=== PATIENT | female | born 1945 | race Asian ===

== ENCOUNTER 2017-05-18 14:16 | Outpatient (CLI) | payer MEDICARE ==
[2017-05-18 19:23] LABS: ALBUMIN/GLOBULIN RATIO 1.4 (1.0-2.2); BILIRUBIN,TOTAL 0.5 mg/dL (0.2-1.0); BUN - BLOOD UREA NITROGEN 22 mg/dL (6-20); CARBON DIOXIDE - CO2 28 mmol/L (21-32); CHLORIDE 106 mmol/L (101-111); CHOL/HDL RATIO 3.4 (<4.4); CHOLESTEROL 203 mg/dL; CREATININE 0.8 mg/dL (0.4-1.0); GFR - MDRD 71 (>89); GLUCOSE 82 mg/dL (70-100); HDL CHOLESTEROL 60 mg/dL; SODIUM 142 mmol/L (135-145); TOTAL PROTEIN 7.8 g/dL (6.7-8.2); TRIGLYCERIDES 111 mg/dL; VLDL CHOLESTEROL 22 mg/dL
[2017-05-18 19:24] LABS: BASOPHILS % (AUTO) 0.9 %; EOSINOPHILS # (AUTO) 0.3 10^3/uL (0.0-0.7); EOSINOPHILS % (AUTO) 4.9 %; HCT - HEMATOCRIT 39.8 % (37.0-47.0); HGB - HEMOGLOBIN 13.2 g/dL (12.0-16.0); LYMPHOCYTES # (AUTO) 2.2 10^3/uL (1.5-3.5); LYMPHOCYTES % (AUTO) 38.1 %; MEAN CORPUSCULAR HEMOGLOBIN 30.7 pg (27.0-31.0); MEAN CORPUSCULAR HGB CONC 33.2 g/dL (32.0-36.0); MEAN CORPUSCULAR VOLUME 92.5 fL (81.0-99.0); MEAN PLATELET VOLUME 8.6 fL (7.9-10.8); MONOCYTES # (AUTO) 0.5 10^3/uL (0.0-1.0); MONOCYTES % (AUTO) 8.2 %; NEUTROPHILS # (AUTO) 2.7 10^3/uL (1.5-6.6); NEUTROPHILS % (AUTO) 47.9 %; NUCLEATED RED BLOOD CELLS AUTO 0.1 /100WBC; RED CELL DISTRIBUTION WIDTH 14.5 % (12.0-15.0); UNCORRECTED WHITE BLOOD COUNT 5.7 x10^3/uL; WHITE BLOOD COUNT 5.7 x10^3/uL (4.8-10.8)
[2017-05-19 14:22] LABS: TEST RESULT REPORT (())
== END 2017-05-18 14:17 | disposition home or self-care (01) ==
LOC: LAB.WCP 14:16
PROVIDERS: ATTEND Physician Assistant Medical
DX: R94.5 Abnormal results of liver function studies (principal); K76.0 Fatty (change of) liver, not elsewhere classified; E04.9 Nontoxic goiter, unspecified; E78.00 Pure hypercholesterolemia, unspecified; Z79.899 Other long term (current) drug therapy
CPT/HCPCS: 36415; 80053; 80061; 81599; 84443; 85025; 86317; 86704; 86708; 86709; 86803; 87340

== ENCOUNTER 2017-06-03 14:03 | Outpatient (CLI) | payer MEDICARE ==
--- NOTE | 2017-06-04 09:14 | DEXA Report ---
DEXA SCAN: 06/03/2017 CLINICAL INDICATION: Postmenopausal. TECHNIQUE: Dual energy x-ray absorptiometry (DXA) was performed on a [employer] system. Regions measured are the AP spine, femoral neck, and, if needed, forearm. COMPARISON: None. In accordance with the International Society for Clinical Densitometry (ISCD) guidelines, data from previous exams may be reanalyzed using current recommendations and techniques. This is done to allow a more accurate basis for comparison with the current study. FINDINGS: The data for the lumbar spine is as follows: REGION BMD (g/cm/cm) T-SCORE Z-SCORE L1 0.935 -1.6 -0.3 L2 1.066 -1.1 0.2 L3 0.878 -2.7 -1.3 L4 1.091 -0.9 0.4 TOTAL 0.995 -1.5 -0.2 NOTE: All evaluable vertebrae are used for classification. The data for the hip is as follows: REGION BMD (g/cm/cm) T-SCORE Z-SCORE Neck 0.754 -2.0 -0.5 TOTAL 0.782 -1.8 -0.4 NOTE: The femoral neck or total proximal femur, whichever is lowest, is used for classification. IMPRESSION: THE WHO CLASSIFICATION BASED ON THE INTERNATIONAL REFERENCE STANDARD IS OSTEOPENIA. THE FRACTURE RISK IS INCREASED. RECOMMENDATION: Patients with diagnosis of osteoporosis or osteopenia should have regular bone mineral density assessment. For those eligible for Medicare, routine testing is allowed once every 2 years. Testing frequency can be increased for patients who have rapidly progressing disease or for those who are receiving medical therapy to restore bone mass. COMMENT: World Health Organization (WHO) definitions for osteoporosis and osteopenia: NORMAL BMD: T-score at -1.0 or higher, fracture risk is low. OSTEOPENIA BMD: T-score between -1.0 and -2.5, fracture risk is increased. OSTEOPOROSIS BMD: T-score at -2.5 or lower, fracture risk high. National Osteoporosis Foundation recommends: 1. Obtain adequate dietary calcium (at least 1200 mg per day) and vitamin D (400 -800 international units per day). 2. Participate, as appropriate, in regular weightbearing and muscle- strengthening exercise. 3. Avoid tobacco use and reduce alcohol and caffeine intake. 4. For more detailed information see the website at www.NOF.org. MTDD
== END 2017-06-03 14:04 | disposition home or self-care (01) ==
LOC: DI 14:03
PROVIDERS: ATTEND Physician Assistant Medical
DX: M85.89 Other specified disorders of bone density and structure, multiple sites (principal)
CPT/HCPCS: 77080

== ENCOUNTER 2018-06-08 08:00 | Outpatient (CLI) | payer MEDICARE ==
[2018-06-08 19:03] LABS: BASOPHILS # (AUTO) 0.1 10^3/uL (0.0-0.1); EOSINOPHILS # (AUTO) 0.3 10^3/uL (0.0-0.7); HGB - HEMOGLOBIN 13.4 g/dL (12.0-16.0); LYMPHOCYTES # (AUTO) 1.9 10^3/uL (1.5-3.5); LYMPHOCYTES % (AUTO) 29.2 %; MEAN CORPUSCULAR HEMOGLOBIN 31.7 pg (27.0-31.0); MEAN CORPUSCULAR HGB CONC 33.3 g/dL (32.0-36.0); MEAN CORPUSCULAR VOLUME 95.1 fL (81.0-99.0); MEAN PLATELET VOLUME 8.2 fL (7.9-10.8); MONOCYTES # (AUTO) 0.5 10^3/uL (0.0-1.0); MONOCYTES % (AUTO) 7.6 %; NEUTROPHILS # (AUTO) 3.7 10^3/uL (1.5-6.6); NEUTROPHILS % (AUTO) 58.2 %; PLT - PLATELET COUNT 167 10^3/uL (130-450); RED BLOOD COUNT 4.24 10^6/uL (4.20-5.40); RED CELL DISTRIBUTION WIDTH 14.7 % (12.0-15.0); WHITE BLOOD COUNT 6.4 x10^3/uL (4.8-10.8)
[2018-06-08 19:31] LABS: ALBUMIN 4.2 g/dL (3.2-5.5); ALBUMIN/GLOBULIN RATIO 1.2 (1.0-2.2); ALKALINE PHOSPHATASE 82 IU/L (42-121); ALT ALANINE AMINOTRANSFERASE 42 IU/L (10-60); AST ASPARTATE AMINOTRANSFERASE 31 IU/L (10-42); BILIRUBIN,TOTAL 0.7 mg/dL (0.2-1.0); BUN - BLOOD UREA NITROGEN 24 mg/dL (6-20); CALCIUM 9.9 mg/dL (8.5-10.3); CARBON DIOXIDE - CO2 28 mmol/L (21-32); CHLORIDE 102 mmol/L (101-111); CHOL/HDL RATIO 2.7 (<4.4); CHOLESTEROL 175 mg/dL; CREATININE 0.8 mg/dL (0.4-1.0); GFR - MDRD 70 (>89); GLUCOSE 91 mg/dL (70-100); HDL CHOLESTEROL 65 mg/dL; LDL CHOLESTEROL,CALCULATED 89 mg/dL; LDL/HDL RATIO 1.4 (<4.4); SODIUM 138 mmol/L (135-145); TOTAL PROTEIN 7.8 g/dL (6.7-8.2); URIC ACID 3.7 mg/dL (2.6-7.2); VLDL CHOLESTEROL 21 mg/dL
[2018-06-08 19:36] LABS: THYROID STIMULATING HORMONE 2.16 uIU/mL (0.34-5.60)
[2018-06-08 19:38] LABS: FREE T4 (FREE THYROXINE) 0.87 ng/dL (0.58-1.64)
== END 2018-06-08 08:01 | disposition home or self-care (01) ==
LOC: LAB.WCP 08:00
PROVIDERS: ATTEND Physician Assistant
DX: I10 Essential (primary) hypertension (principal); Z79.899 Other long term (current) drug therapy; E04.9 Nontoxic goiter, unspecified; N20.0 Calculus of kidney
CPT/HCPCS: 36415; 80053; 80061; 83721; 84439; 84443; 84550; 85025; 85651

== ENCOUNTER 2019-10-25 10:10 | Outpatient (CLI) | payer MEDICARE | END 2019-10-25 10:11 | disposition home or self-care (01) | LOC: DI 10:10 | PROVIDERS: ATTEND Physician Assistant | DX: I27.20 Pulmonary hypertension, unspecified (principal); I51.7 Cardiomegaly | CPT/HCPCS: 93306 ==

== ENCOUNTER 2019-12-20 08:00 | Outpatient (CLI) | payer MEDICARE ==
[2019-12-20 18:52] LABS: BASOPHILS # (AUTO) 0.1 10^3/uL (0.0-0.1); BASOPHILS % (AUTO) 1.2 %; EOSINOPHILS # (AUTO) 0.2 10^3/uL (0.0-0.7); EOSINOPHILS % (AUTO) 4.1 %; HGB - HEMOGLOBIN 13.1 g/dL (12.0-16.0); LYMPHOCYTES # (AUTO) 1.5 10^3/uL (1.5-3.5); LYMPHOCYTES % (AUTO) 30.8 %; MEAN CORPUSCULAR HEMOGLOBIN 29.6 pg (27.0-31.0); MEAN CORPUSCULAR HGB CONC 31.6 g/dL (32.0-36.0); MEAN CORPUSCULAR VOLUME 93.9 fL (81.0-99.0); MEAN PLATELET VOLUME 10.5 fL (7.9-10.8); MONOCYTES # (AUTO) 0.4 10^3/uL (0.0-1.0); MONOCYTES % (AUTO) 8.6 %; NEUTROPHILS # (AUTO) 2.7 10^3/uL (1.5-6.6); NEUTROPHILS % (AUTO) 54.9 %; PLT - PLATELET COUNT 148 10^3/uL (130-450); RED BLOOD COUNT 4.42 10^6/uL (4.20-5.40); RED CELL DISTRIBUTION WIDTH 14.1 % (12.0-15.0); WHITE BLOOD COUNT 4.9 x10^3/uL (4.8-10.8)
[2019-12-20 19:30] LABS: ALBUMIN 4.2 g/dL (3.2-5.5); ALBUMIN/GLOBULIN RATIO 1.3 (1.0-2.2); ALKALINE PHOSPHATASE 103 IU/L (42-121); ALT ALANINE AMINOTRANSFERASE 59 IU/L (10-60); AST ASPARTATE AMINOTRANSFERASE 45 IU/L (10-42); BILIRUBIN,TOTAL 0.7 mg/dL (0.2-1.0); BUN - BLOOD UREA NITROGEN 19 mg/dL (6-20); CALCIUM 10.1 mg/dL (8.5-10.3); CARBON DIOXIDE - CO2 27 mmol/L (21-32); CHLORIDE 104 mmol/L (101-111); CHOLESTEROL 215 mg/dL; CREATININE 0.9 mg/dL (0.4-1.0); GFR - MDRD 61 (>89); GLUCOSE 102 mg/dL (70-100); HDL CHOLESTEROL 71 mg/dL; LDL CHOLESTEROL,CALCULATED 129 mg/dL; LDL/HDL RATIO 1.8 (<4.4); SODIUM 140 mmol/L (135-145); TOTAL PROTEIN 7.4 g/dL (6.7-8.2); URIC ACID 3.5 mg/dL (2.6-7.2); VLDL CHOLESTEROL 15 mg/dL
== END 2019-12-20 23:59 | disposition home or self-care (01) ==
LOC: LAB.WCP 08:00
PROVIDERS: ATTEND Physician Assistant
DX: I10 Essential (primary) hypertension (principal); Z79.899 Other long term (current) drug therapy; N20.0 Calculus of kidney
CPT/HCPCS: 36415; 80053; 80061; 83721; 84550; 85025

== ENCOUNTER 2020-01-09 11:15 | Outpatient (CLI) | payer MEDICARE ==
--- NOTE | 2020-01-10 20:21 | SLEEP CARE CONSULTATION ---
Information from patient questionnaire entered by Leonor Prasad. I have reviewed and concur with the information entered by Leonor Prasad. This document represents the service I personally performed and the decisions made by me, Karley Villanueva MD, [facility]. History of Present Illness Reason for Visit: New patient Chief Complaint: reports: Unrefreshed sleep, Snoring, Fatigue, Frequent awakenings at night Duration of Symptoms: 5 years Usual bedtime: 2300 Time it takes to fall asleep: 30-60 minutes Snores at night: Yes Observed to quit breathing while asleep: No Reasons for waking at night: reports: Snoring, Bathroom Toss, Turn, or Twitch while sleeping: Yes Recalls having dreams: Yes (not all the time) Usually gets out of bed at: [id number] Feels refreshed in the morning: Yes Morning headache: No Sleepy or fatigued during the day: No Takes day naps: Yes Dreams during day naps: Yes Prior sleep studies: No Additional HPI information: I had the pleasure of seeing Mrs. Colin along with her daughter today regarding the possibility of her having a sleep disorder. As you know, she is a 74 year old lady who complains of frequent awakenings, unrefreshed sleep, and persistent fatigue for the past 5 years. She recently was diagnosed with pulmonary hypertension. The patient tells me that she normally goes to bed around 11 pm, and it takes her approximately 30 - 60 minutes to fall asleep. She has been told that she snores loudly and irregularly at night. She has never been observ ed to stop breathing in her sleep. However, she sleeps alone. She can recall waking up on the average of 2 - 3 times during the night. Most of the time she wakes up because of having to use the bathroom. She has awakened occasionally because of her own snoring, choking, and having to gasp for air. There is a lot of tossing and turning in her sleep. 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 Generally she can recall having dreams. In the morning she usually gets up out of the bed around 11 a.m. noon, feeling refreshed and rested. She usually does not have a morning headache. During the day she does not feel sleepy. Her score on [place] Sleepiness Scale is 11 out of 24. She does not drive. She usually takes naps during the day. Upon falling asleep during the day she reports having dreams. She has symptoms of restless leg syndrome. She reports having impaired concentration during the day. Subjective Initial [place] Sleepiness Scale score: 11 Past Medical History Past Medical History: reports: Hypertension, Gout, Other (Pulmonary hypertension, fatty liver, nephrolithiasis) Social History The patient's occupation is retired. Patient is and lives in [place]. Have you smoked in the past 12 months: No Alcohol use: No Caffeine use: Yes Allergies and Home Medications Drug allergies reviewed: Yes (NKDA) Home medication list reviewed: Yes (allopurinol. lisinopril, amlodipine) Review of Systems Cardiovascular: reports: high blood pressure Respiratory: denies: shortness of breath, wheeze, sputum production, chronic cough, other Gastrointestinal: denies: heartburn, difficulty swallowing, nausea, vomitting, diarrhea, abdominal pain, other Urinary: denies: incontinence, frequency, urgency, impotence, other Neurological: reports: headaches Psychiatric: denies: Attention Deficit Hyperactivity, anxiety, depression, mood disorder, claustrophobia, other Ear/Nose/Throat: denies: nasal congestion, sinus problems, nose bleeds, dry mouth/throat, hoarseness, injury to nose, tonsillectomy, wisdom teeth removed, other Endocrine: denies: thyroid disease, history of goiter, sluggishness, too hot or cold, excessive thirst, increased appetite, increased urination, unexplained weakness, other Musculoskeletal: denies: joint pain, neck pain, back pain, joint swelling, muscle pain or cramping, mobility problems, other Immunologic: denies: sneezing, rash, itching, allergies to food or environment, other Physical Exam Vital signs obtained and entered by: Dr. Villanueva Blood Pressure: 145/85 Cuff size: regular Heart Rate: 71 O2 Saturation: 98 Height: 5 ft Weight: 165 lb Body Mass Index: 32.2 BMI Classification: Obesity Class 1 Neck circumference: 15 Mood/affect: normal HEENT: No craniofacial malformation Nostrils: patent to airflow Turbinates: normal Septum: midline Mouth and throat: narrow oropharynx Soft palate: long Hard palate: normal Uvula: normal Uvula visualization: 25% Mallampati Class III Tongue: enlarged in size with teeth cabrera on lateral edges Tonsils: small Chin and jaw: normal size and position Neck: normal w/o lymphadenopathy or thyromegaly Heart: regular rate and rhythm Lungs: clear bilaterally Abdomen: soft, non-tender Extremities: 1+ edema Neurologic: intact, no focal deficits Impression and Plan IMPRESSION: 1. Obstructive Sleep Apnea-Hypopnea Syndrome, as suggested by history of loud snoring, frequent awakenings during the night, unrefreshed sleep, cognitive impa irment, and daytime hypersomnolence. Narrow oropharynx and obesity are common predisposing factors for obstructive sleep apnea-hypopnea syndrome. Obstructive sleep apnea-hypopnea can also cause pulmonary hypertension. Pathophysiology of sleep-disordered breathing was discussed. I recommend proceeding to polysomnography to confirm the diagnosis and to assess severity. If she has significant sleep disordered breathing, a manual CPAP titration study will also be performed to find the optimal treatment pressure. I informed the patient of what the sleep studies involve and after some discussion, she agreed to proceed. Plan: 1. Schedule an in-laboratory polysomnography. 2. Try to lose weight. 3. Avoid alcohol, sedative and muscle relaxant around bedtime. 4. Return in 1 to 2 weeks after the study to discuss results and initiate therapy I spent 100% of this visit face to face with the patient with greater than 50% of this was spent time counseling the patient and coordination of care.
[2020-01-10 20:22] VITALS: BP 145/85
== END 2020-01-09 11:16 | disposition home or self-care (01) ==
LOC: SC 11:15
PROVIDERS: ATTEND Internal Medicine Pulmonary Disease
DX: G47.10 Hypersomnia, unspecified (principal); G47.8 Other sleep disorders; R41.89 Other symptoms and signs involving cognitive functions and awareness; R06.83 Snoring; E66.9 Obesity, unspecified; Z68.32 Body mass index [BMI] 32.0-32.9, adult
CPT/HCPCS: 99203; G0463; 99212

== ENCOUNTER 2020-01-19 20:37 | Outpatient (CLI) | payer MEDICARE | END 2020-01-19 20:38 | disposition home or self-care (01) | LOC: SC 20:37 | PROVIDERS: ATTEND Internal Medicine Pulmonary Disease | DX: G47.8 Other sleep disorders (principal); R06.83 Snoring; I10 Essential (primary) hypertension; R53.83 Other fatigue; E66.9 Obesity, unspecified; Z68.32 Body mass index [BMI] 32.0-32.9, adult | CPT/HCPCS: 95810 ==

== ENCOUNTER 2020-11-11 15:48 | Outpatient (CLI) | payer MEDICARE ==
[2020-11-11 19:09] LABS: BASOPHILS # (AUTO) 0.1 10^3/uL (0.0-0.1); BASOPHILS % (AUTO) 0.7 %; EOSINOPHILS # (AUTO) 0.3 10^3/uL (0.0-0.7); EOSINOPHILS % (AUTO) 3.6 %; HGB - HEMOGLOBIN 13.9 g/dL (12.0-16.0); LYMPHOCYTES # (AUTO) 2.4 10^3/uL (1.5-3.5); LYMPHOCYTES % (AUTO) 33.9 %; MEAN CORPUSCULAR HEMOGLOBIN 30.8 pg (27.0-31.0); MEAN CORPUSCULAR VOLUME 93.3 fL (81.0-99.0); MEAN PLATELET VOLUME 10.3 fL (7.9-10.8); MONOCYTES # (AUTO) 0.6 10^3/uL (0.0-1.0); MONOCYTES % (AUTO) 7.8 %; NEUTROPHILS # (AUTO) 3.8 10^3/uL (1.5-6.6); NEUTROPHILS % (AUTO) 53.7 %; PLT - PLATELET COUNT 157 10^3/uL (130-450); RED BLOOD COUNT 4.51 10^6/uL (4.20-5.40); RED CELL DISTRIBUTION WIDTH 13.4 % (12.0-15.0); WHITE BLOOD COUNT 7.1 x10^3/uL (4.8-10.8)
[2020-11-11 19:33] LABS: ALBUMIN 4.6 g/dL (3.2-5.5); ALBUMIN/GLOBULIN RATIO 1.3 (1.0-2.2); ALKALINE PHOSPHATASE 98 IU/L (42-121); ALT ALANINE AMINOTRANSFERASE 64 IU/L (10-60); AST ASPARTATE AMINOTRANSFERASE 53 IU/L (10-42); BILIRUBIN,TOTAL 0.8 mg/dL (0.2-1.0); BUN - BLOOD UREA NITROGEN 18 mg/dL (6-20); CALCIUM 10.1 mg/dL (8.5-10.3); CARBON DIOXIDE - CO2 28 mmol/L (21-32); CHLORIDE 102 mmol/L (101-111); CHOL/HDL RATIO 3.5 (<4.4); CHOLESTEROL 227 mg/dL; CREATININE 0.9 mg/dL (0.4-1.0); GLUCOSE 95 mg/dL (70-100); HDL CHOLESTEROL 64 mg/dL; LDL CHOLESTEROL,CALCULATED 150 mg/dL; LDL/HDL RATIO 2.3 (<4.4); SODIUM 141 mmol/L (135-145); TOTAL PROTEIN 8.1 g/dL (6.7-8.2); URIC ACID 3.6 mg/dL (2.6-7.2); VLDL CHOLESTEROL 13 mg/dL
== END 2020-11-11 23:59 | disposition home or self-care (01) ==
LOC: LAB.WCP 15:48
PROVIDERS: ATTEND Physician Assistant
DX: K76.0 Fatty (change of) liver, not elsewhere classified (principal); I10 Essential (primary) hypertension; N20.0 Calculus of kidney; Z79.899 Other long term (current) drug therapy
CPT/HCPCS: 36415; 80053; 80061; 83721; 84550; 85025

== ENCOUNTER 2020-11-13 12:02 | Outpatient (CLI) | payer MEDICARE ==
--- NOTE | 2020-11-13 17:47 | XRAY Report ---
PROCEDURE: Hip w/Pelvis 1V RT INDICATIONS: R HIP PX TECHNIQUE: AP pelvis with lateral view(s) of the bilateral hip(s). COMPARISON: None. FINDINGS: Bones: No fractures or dislocations. Pelvic ring appears intact. No suspicious bony lesions. Mild bilateral hip osseous hypertrophy. Mild bilateral hip joint space narrowing. Soft tissues: The visualized bowel gas pattern is normal. No suspicious soft tissue calcifications. IMPRESSION: 1. No fracture. No acute osseous lesion. If there are persistent symptoms or continued clinical sumanth rn for pathology, then repeat plain film radiographs (7-10 days) or advanced imaging (CT, MR, bone sc an) should be considered for further evaluation. 2. Mild to moderate bilateral hip osteoarthritis. Reviewed by: Ellen Ellis MD, PhD on 11/13/2020 5:46 PM PST Approved by: Ellen Ellis MD, PhD on 11/13/2020 5:46 PM PST Station ID: [id number]
== END 2020-11-13 12:03 | disposition home or self-care (01) ==
LOC: DI 12:02
PROVIDERS: ATTEND Physician Assistant
DX: M16.0 Bilateral primary osteoarthritis of hip (principal)

== ENCOUNTER 2020-12-11 12:22 | Outpatient (CLI) | payer MEDICARE ==
--- OUTSIDE RECORDS SUMMARY | 2020-12-11 12:25 | EXTERNAL MEDICAL SUMMARY RPT | Continuity of Care Document ---
:1945 Demographics Phone Unavailable Preferred Language Yi Marital Status Unknown Zoroastrian Affiliation Unknown Race Unknown Ethnic Group Unknown Author Organization [place] Address [address] [phone] Phone Care Team Providers Name Role Phone PA-C Unavailable Unavailable Holiday Unavailable Unavailable Esdras Unavailable Unavailable [place]zeka Unavailable Unavailable Problems date description facility 2015-06-14 14:00 GOITER NOS [facility] 2015-06-14 14:[address] [facility] 2015-06-14 14:[address] [facility] 2015-06-14 14:00 BENIGN HYPERTENSION [facility] 2015-07-18 13:36 OTH SCREEN MAMMO-MALIGN NEOPLASM OF [facility] BREAST 2016-04-07 14:25 NONTOXIC GOITER, UNSPECIFIED [facility] 2016-04-07 14:25 PURE HYPERCHOLESTEROLEMIA [facility] 2016-04-07 14:25 ABNORMAL RESULTS OF LIVER FUNCTION [facility] STUDIES 2016-04-07 14:25 ENCOUNTER FOR THERAPEUTIC DRUG [facility] LEVEL MONITORING 2016-04-18 11:12 FATTY (CHANGE OF) LIVER, NOT [facility] ELSEWHERE CLASSIFIED 2017-05-18 14:16 NONTOXIC GOITER, UNSPECIFIED [facility] 2017-05-18 14:16 PURE HYPERCHOLESTEROLEMIA, [facility] UNSPECIFIED 2017-05-18 14:16 FATTY (CHANGE OF) LIVER, NOT [facility] ELSEWHERE CLASSIFIED 2017-05-18 14:16 ABNORMAL RESULTS OF LIVER FUNCTION [facility] STUDIES 2017-05-18 14:16 OTHER SKILLED NURSING (CURRENT) DRUG [facility] THERAPY 2017-06-03 14:03 OTH DISRD OF BONE DENSITY AND [facility] STRUCTURE, MULTIPLE SITES 2018-06-08 08:00 NONTOXIC GOITER, UNSPECIFIED [facility] 2018-06-08 08:00 ESSENTIAL (PRIMARY) HYPERTENSION [facility] 2018-06-08 08:00 CALCULUS OF KIDNEY [facility] 2018-06-08 08:00 OTHER SKILLED NURSING (CURRENT) DRUG [facility] THERAPY 2019-10-25 10:10 PULMONARY HYPERTENSION, UNSPECIFIED [facility] 2019-10-25 10:10 CARDIOMEGALY [facility] 2019-12-20 08:00 ESSENTIAL (PRIMARY) HYPERTENSION [facility] 2019-12-20 08:00 CALCULUS OF KIDNEY [facility] 2019-12-20 08:00 OTHER SKILLED NURSING (CURRENT) DRUG [facility] THERAPY 2020-01-09 11:15 OBESITY, UNSPECIFIED [facility] 2020-01-09 11:15 HYPERSOMNIA, UNSPECIFIED [facility] 2020-01-09 11:[address] [facility] 2020-01-09 11:15 SNORING [facility] 2020-01-09 11:15 OTH SYMPTOMS AND SIGNS W COGNITIVE [facility] FUNCTIONS AND AWARENESS 2020-01-09 11:15 BODY MASS INDEX (BMI) 32.0-32.9, [facility] ADULT 2020-01-19 20:37 OBESITY, UNSPECIFIED [facility] 2020-01-19 20:37 OTHER PARASOMNIA [facility] 2020-01-19 20:[address] [facility] 2020-01-19 20:37 ESSENTIAL (PRIMARY) HYPERTENSION [facility] 2020-01-19 20:37 SNORING [facility] 2020-01-19 20:37 OTHER FATIGUE [facility] 2020-01-19 20:37 BODY MASS INDEX (BMI) 32.0-32.9, [facility] ADULT 2020-01-31 11:33 OBESITY, UNSPECIFIED [facility] 2020-01-31 11:[address] [facility] 2020-01-31 11:33 PULMONARY HYPERTENSION, UNSPECIFIED [facility] 2020-01-31 11:33 SNORING [facility] 2020-01-31 11:33 OTHER FATIGUE [facility] 2020-01-31 11:33 BODY MASS INDEX (BMI) 34.0-34.9, [facility] ADULT 2020-11-11 00:00 ESSENTIAL (PRIMARY) HYPERTENSION [facility] 2020-11-11 00:00 FATTY (CHANGE OF) LIVER, NOT [facility] ELSEWHERE CLASSIFIED 2020-11-11 00:00 CALCULUS OF KIDNEY [facility] 2020-11-11 00:00 OTHER HEARING CARE PROFESSIONAL (CURRENT) DRUG [facility] THERAPY 2020-11-11 00:00:00 Pain in joint involving pelvic [facility] region and thigh [facility] 2020-11-11 00:00:00 Asymptomatic postmenopausal status [facility] Primary Care (age-related) (natural) [facility] 2020-11-11 00:00:00 HIP UNILATERAL 2 VIEW [facility] 2020-11-11 00:00:00 DEXA BONE DENSITY COMPLETE [facility] Primary Care [facility] 2020-11-11 00:00:00 COMPREHENSIVE METABOLIC PANEL [facility] Primary Care [facility] 2020-11-11 00:00:00 LIPIDS SCREEN [facility] 2020-11-11 00:00:00 Uric Acid [facility] 2020-11-11 00:00:00 CBC W/Diff/Plt [facility] 2020-11-11 00:00:00 Pain in right hip [facility] 2020-11-11 00:00:00 Asymptomatic menopausal state [facility] Primary Care [facility] 2020-11-11 00:00:00 Health-related behavior [facility] Primary Care [facility] 2020-11-11 00:00:00 Tobacco use and exposure [facility] Primary Care [facility] 2020-11-11 00:00:00 Exercise [facility] 2020-11-11 00:00:00 Never smoker [facility] 2020-11-11 00:00:00 Little interest or pleasure in [facility] Primary Care doing things? [facility] 2020-11-11 00:00:00 Feeling down, depressed, or [facility] hopeless? [facility] 2020-11-11 00:00:00 Hip pain [facility] 2020-11-11 00:00:00 Patient Health Questionnaire 2 item [facility] (PHQ[facility] total score [facility] 2020-11-11 00:00:00 Alcohol use [facility] 2020-11-11 00:00:00 Tobacco smoking status [facility] Primary Care [facility] 2020-11-11 00:00:00 Total score? [facility] 2020-11-11 00:00:00 Postmenopausal state [facility] Pr [facility] Care [facility] 2020-11-11 15:48 ESSENTIAL (PRIMARY) HYPERTENSION [facility] 2020-11-11 15:48 FATTY (CHANGE OF) LIVER, NOT [facility] ELSEWHERE CLASSIFIED 2020-11-11 15:48 CALCULUS OF KIDNEY [facility] 2020-11-11 15:48 OTHER HEARING CARE PROFESSIONAL (CURRENT) DRUG [facility] THERAPY 2020-11-13 12:02 BILATERAL PRIMARY OSTEOARTHRITIS OF [facility] HIP 2020-11-13 12:02 PAIN IN RIGHT HIP [facility] 2020-12-04 00:00:00 Arthropathy unspecified, involving [facility] Primary Care pelvic region and thigh [facility] 2020-12-04 00:00:00 CT MAXILLOFACIAL W/WO [facility] 2020-12-04 00:00:00 Other specific arthropathies, not i [facility] Primary Care elsewhere classified, right hip [place] [facility] 2020-12-04 00:00:00 Localized swelling, mass and lump, [facility] 2020-[facility]:00:00 [facility] [place] [facility] 2020-12-04 00:00:00 Tobacco use and exposure [facility] [place] [facility] 2020-12-04 00:00:00 [facility] [place] [facility] 2020-12-04 00:00:00 [facility] [place] [facility] 2020-12-04 00:00:00 Swelling / lump [facility] [place] [facility] 2020-12-04 00:00:00 Arthritis of hip [facility] [place] [facility] 2020-12-04 00:00:00 [facility] [place] [facility] 2020-12-04 00:00:00 Tobacco smoking status [facility] [place] [facility] 2020-12-04 00:00:00 Total score? [facility] [place] [facility] 2020-12-11 12:45 LOCALIZED SWELLING, MASS AND LUMP, i [facility] HEAD 2020-12-13 13:00 ASYMPTOMATIC MENOPAUSAL STATE [facility] Medications date description facility 2020-11-11 00:00:00 [facility] [place] [facility] 2020-11-11 00:00:00 [facility] [place] [facility] 2020-11-11 00:00:00 [facility]OXICAM [facility] [place] [facility] 2020-11-11 00:00:00 [facility] [place] [facility] 2020-11-11 00:00:00 [facility] [place] [facility] 2020-11-11 00:00:00 [facility]AM [facility] [place] [facility] Procedures date description facility 2020-11-11 00:00:00 HIP UNILATERAL 2 VIEW [facility] [place] [facility] date description facility 2020-11-11 00:00:00 COMPREHENSIVE METABOLIC PANEL [facility] [place] [facility] date description facility 2020-11-11 00:00:00 [facility] [place] [facility] date description facility 2020-11-11 00:00:00 [facility]ric [facility] [place] [facility] date description facility 2020-11-11 00:00:00 CBC W[facility]Diff[facility]t [facility] [place] [facility] date description facility 2020-11-11 00:00:00 First Vx - Ix admin for [facility] Medicare patients [place] [facility] date description facility 2020-11-11 00:00:00 Fluzone High[facility]Dose [facility] Suspension [place] [facility] date description facility 2020-11-11 00:00:[facility] [place] [facility] Results Social History date description facility 2020-11-11 00:00:00 [facility] [place] [facility] date description facility 2020-12-04 00:00:00 [facility] [place] [facility] Social History date description facility 2020-11-11 00:00:00 [facility]oker [facility] [place] [facility] date description facility 2020-12-04 00:00:00 [facility] smoker [facility] [place] [facility] date description facility [id number]
[2020-12-11] MEDS ORDERED: IOVERSOL 320 100 ML VIAL IVP ONE ×2 (12:50→14:07)
--- NOTE | 2020-12-11 14:43 | CT Report ---
PROCEDURE: MAXILLOFACIAL W INDICATIONS: LT SIDED MASS OVER PAROTID GLAND CONTRAST: IV CONTRAST: Optiray 320 ml: 100 PO CONTRAST: *NO PO CONTRAST TECHNIQUE: After the administration of intravenous contrast, 3.0 mm axial sections acquired from the mid-neck to the frontal sinuses, with coronal reformatting. For radiation dose reduction, the following was use d: automated exposure control, adjustment of mA and/or kV according to patient size. COMPARISON: None. FINDINGS: Image quality: Excellent. Soft tissues: The marked area of interest is seen overlying the left parotid. The left parotid is en larged and hyperenhancing compared to the right parotid. The left parotid duct does not appear enlarg ed. No lala parotid stones can be seen. No lala, focal parotid masses are seen on either side. No subarticular masses are detected. No definitely enlarged lymph nodes are seen. No edema or fluid collections. No enlarged lymph nodes. A likely cyst is seen within the right thyr oid measuring up to 2.1 cm. Vascular: Visualized vascular structures appear patent throughout. Bony vascular foramina and canal s appear normal. Bones: Facial bones appear intact, without fractures, erosions, or destruction. Visualized portions of the skull base and auditory canals also appear normal. Age-appropriate degenerative changes are seen in the visualized cervical spine. Sinuses: Paranasal sinuses are aerated without fluid levels, mucosal thickening, or mucoceles. Mast oid air cells are aerated. IMPRESSION: The left parotid gland is enlarged and hyperenhancing compared to the right. Differential diagnosis i ncludes parotitis. Although no lala masses are identified, a follow-up ultrasound is suggested. If c linically appropriate, an ultrasound-guided left parotid biopsy could also be considered. Likely right thyroid cyst noted. Please consider a dedicated thyroid ultrasound for further evaluatio n, when clinically appropriate. Reviewed by: Simeon Maier MD on 12/11/2020 1:42 PM [facility] Approved by: Simeon Maier MD on 12/11/2020 1:42 PM [facility] Station ID: [id number]
== END 2020-12-11 12:23 | disposition home or self-care (01) ==
LOC: DI 12:22
PROVIDERS: ATTEND Physician Assistant
DX: R22.0 Localized swelling, mass and lump, head (principal); K11.1 Hypertrophy of salivary gland
CPT/HCPCS: 70487; Q9967

== ENCOUNTER 2020-12-13 12:51 | Outpatient (CLI) | payer MEDICARE ==
--- NOTE | 2020-12-13 14:50 | DEXA Report ---
PROCEDURE: Dexa Spine and/or Hip INDICATIONS: POST MENOPAUSAL TECHNIQUE: Dual energy x-ray absorptiometry (DXA) was performed on a [employer] System. Regions measur ed are the AP Spine, femoral neck, and if needed forearm. COMPARISON: None. FINDINGS: Lumbar Spine: Bone Mineral Density 1.099 g/cm/cm,T score -0.7, Left Femoral Neck: Bone Mineral Density 0.696 g/cm/cm, T score -2.5, (T score greater or equal to -1.0: NORMAL) (T score from -1.1 to -2.4: OSTEOPENIA) (T score less than or equal to -2.5 to: OSTEOPOROSIS) Impression: Osteoporosis Patients with diagnosis of osteoporosis or osteopenia should have regular bone mineral density assess ment. For those eligible for Medicare, routine testing is allowed once every 2 years. Testing frequ ency can be increased for patients who have rapidly progressing disease or for those who are receivin g medical therapy to restore bone mass. Reviewed by: Jose García MD on 12/13/2020 2:48 PM PST Approved by: Jose García MD on 12/13/2020 2:48 PM PST Station ID: [id number]
== END 2020-12-13 12:52 | disposition home or self-care (01) ==
LOC: DI 12:51
PROVIDERS: ATTEND Physician Assistant
DX: M81.0 Age-related osteoporosis without current pathological fracture (principal)

== ENCOUNTER 2021-01-02 08:00 | Outpatient (CLI) | payer MEDICARE ==
--- NOTE | 2021-01-02 15:52 | XRAY Report ---
PROCEDURE: Hip w/Pelvis 2-3V RT INDICATIONS: ARTHRITIS, RIGHT HIP TECHNIQUE: AP pelvis with lateral view(s) of the right hip(s). COMPARISON: 11/13/2020. FINDINGS: Bones: No fractures or dislocations. Bilateral hip joint osteoarthritic changes are seen slightly w orse on the right side. No evidence of avascular necrosis of femoral head. Pelvic ring appears intact . No suspicious bony lesions. Degenerative disc disease in visualized lower lumbar spine is again se en. Soft tissues: The visualized bowel gas pattern is normal. No suspicious soft tissue calcifications. IMPRESSION: No hip fracture or dislocation. No evidence of avascular necrosis. Right worse on left bi lateral hip joint osteoarthritis. Degenerative disc disease in lower lumbar spine. Reviewed by: Mk Arana MD on 01/02/2021 2:51 PM [place] Approved by: Mk Arana MD on 01/02/2021 2:51 PM [facility] Station ID: [id number]
== END 2021-01-02 23:59 | disposition home or self-care (01) ==
LOC: DI.N 08:00
PROVIDERS: ATTEND Orthopaedic Surgery
DX: M16.0 Bilateral primary osteoarthritis of hip (principal)

== ENCOUNTER 2021-09-15 15:41 | Outpatient (CLI) | payer MEDICARE ==
[2021-09-15 18:20] LABS: BASOPHILS # (AUTO) 0.1 10^3/uL (0.0-0.1); EOSINOPHILS # (AUTO) 0.4 10^3/uL (0.0-0.7); HGB - HEMOGLOBIN 13.2 g/dL (12.0-16.0); LYMPHOCYTES # (AUTO) 2.2 10^3/uL (1.5-3.5); LYMPHOCYTES % (AUTO) 30.7 %; MEAN CORPUSCULAR HEMOGLOBIN 30.1 pg (27.0-31.0); MEAN CORPUSCULAR HGB CONC 32.2 g/dL (32.0-36.0); MEAN CORPUSCULAR VOLUME 93.4 fL (81.0-99.0); MEAN PLATELET VOLUME 10.1 fL (7.9-10.8); MONOCYTES # (AUTO) 0.5 10^3/uL (0.0-1.0); MONOCYTES % (AUTO) 6.7 %; NEUTROPHILS % (AUTO) 56.3 %; PLT - PLATELET COUNT 159 10^3/uL (130-450); RED BLOOD COUNT 4.39 10^6/uL (4.20-5.40); RED CELL DISTRIBUTION WIDTH 13.6 % (12.0-15.0); WHITE BLOOD COUNT 7.2 x10^3/uL (4.8-10.8)
[2021-09-15 18:46] LABS: ALBUMIN 4.7 g/dL (3.2-5.5); ALBUMIN/GLOBULIN RATIO 1.4 (1.0-2.2); ALKALINE PHOSPHATASE 109 IU/L (42-121); ALT ALANINE AMINOTRANSFERASE 49 IU/L (10-60); AST ASPARTATE AMINOTRANSFERASE 44 IU/L (10-42); BILIRUBIN,TOTAL 0.5 mg/dL (0.2-1.0); BUN - BLOOD UREA NITROGEN 18 mg/dL (6-20); CALCIUM 10.2 mg/dL (8.5-10.3); CARBON DIOXIDE - CO2 28 mmol/L (21-32); CHLORIDE 102 mmol/L (101-111); CHOL/HDL RATIO 3.4 (<4.4); CHOLESTEROL 212 mg/dL; CREATININE 0.9 mg/dL (0.4-1.0); GFR - MDRD 61 (>89); GLUCOSE 93 mg/dL (70-100); HDL CHOLESTEROL 62 mg/dL; LDL CHOLESTEROL,CALCULATED 132 mg/dL; LDL/HDL RATIO 2.1 (<4.4); POTASSIUM 3.9 mmol/L (3.5-5.0); SODIUM 140 mmol/L (135-145); TOTAL PROTEIN 8.1 g/dL (6.7-8.2); TRIGLYCERIDES 92 mg/dL; VLDL CHOLESTEROL 18 mg/dL
[2021-09-15 18:52] LABS: THYROID STIMULATING HORMONE 2.44 uIU/mL (0.34-5.60)
== END 2021-09-15 23:59 | disposition home or self-care (01) ==
LOC: LAB.WCP 15:41
PROVIDERS: ATTEND Internal Medicine
DX: I10 Essential (primary) hypertension (principal); E04.9 Nontoxic goiter, unspecified
CPT/HCPCS: 36415; 80053; 80061; 83721; 84443; 85025

== ENCOUNTER 2021-09-15 17:07 | Outpatient (CLI) | payer MEDICARE ==
--- NOTE | 2021-09-16 08:10 | XRAY Report ---
PROCEDURE: Lumbar Spine 2 View INDICATIONS: LUMBAR SPONDYLOSIS TECHNIQUE: 3 views of the lumbar spine were acquired. COMPARISON: None. FINDINGS: Bones: 5 [id number] vertebrae are present. There is diffuse osteopenia compatible with reporte d history of osteoporosis. There is straightening of normal lumbar lordosis. Moderate multilevel spon dylosis of the imaged spine with degenerative endplate changes and prominent endplate osteophytes. Mi d and lower lumbar facet arthropathy. No acute compression fractures noted. No suspicious bony lesion s. Soft tissues: Overlying bowel gas pattern is normal. No suspicious soft tissue calcifications. IMPRESSION: 1. Lumbar spine without acute fracture. No acute compression fractures visualized. 2. Moderate multilevel lumbar spondylosis. 3. Diffuse osteopenia. Reviewed by: Royer Lima MD on 09/16/2021 8:09 AM PDT Approved by: Royer Lima MD on 09/16/2021 8:09 AM PDT Station ID: [id number]
== END 2021-09-15 17:08 | disposition home or self-care (01) ==
LOC: DI.N 17:07
PROVIDERS: ATTEND Internal Medicine
DX: M47.816 Spondylosis without myelopathy or radiculopathy, lumbar region (principal); M85.89 Other specified disorders of bone density and structure, multiple sites; I10 Essential (primary) hypertension; E04.9 Nontoxic goiter, unspecified
CPT/HCPCS: 36415; 80053; 80061; 83721; 84443; 85025